=== PATIENT | female | born 1945 | race Two or more races ===

== ENCOUNTER 2020-07-13 17:56 | Emergency (ER) | payer OTHER ==
[~2020-07-13] VITALS: Ht 160 cm; Wt 72.6 kg
--- NOTE | 2020-07-13 18:00 | NUR ---
ED Nurse Note: Patient BIBA from home c/o flu-like symptoms, chills, and diarrhea for the past 2-3 days. Patient VSS, no s/s of acute distress.
[2020-07-13 18:01] VITALS: BP 150/88
--- NOTE | 2020-07-13 18:10 | NUR ---
ED Nurse Note: 20g IV started in right AC, blood collected and sent to lab, along with Covid and influenza swabs
--- NOTE | 2020-07-13 18:13 | Emergency Room Report ---
History of Present Illness General Chief Complaint: Upper Respiratory Illness Source: Patient Present Illness HPI Disclaimer: Please note that this report is being documented using [email or web address] technology. This can lead to erroneous entry secondary to incorrect interpretation by the dictating instrument. HPI: 75-year-old female history of breast cancer status post chemotherapy, radiation and mastectomy on maintenance chemotherapy presents for evaluation of fever and weakness. Patient reports 3 to 5 days of general fatigue and malaise as well as 2 days of nonbloody diarrhea. Denies nausea or vomiting. Denies chest pain, shortness of breath, cough, nasal congestion or URI symptoms otherwise. Tested negative for COVID-19 last month. Reports low-grade fevers at home as high as 100 degrees oral temperature. Denies dysuria or hematuria or flank pain. Received a flu shot last month. PMH: Breast cancer PSH: Mastectomy, splenectomy Allergies: Denied Social Hx: Denied Allergies: Coded Allergies: No Known Allergies (Unverified , 07/13/20) COVID-19 Screening Contact w/high risk pt: No Experienced COVID-19 symptoms?: No COVID-19 Testing performed SCOOP DRIVER: No Nursing Documentation-PMH Hx Cancer: Yes - breast Review of Systems All Other Systems: negative except mentioned in HPI Physical Exam Vital Signs Date Time Temp Pulse Resp B/P (MAP) Pulse Ox O2 Delivery O2 Flow Rate FiO2 07/13/20 17:48 99.0 80 18 150/88 (108) 98 Room Air General: Awake and alert, no acute distress HEENT: NC/AT. EOMI. Cardiovascular: RRR. S1 and S2 normal. No murmur appreciated Resp: Normal work of breathing. No cough, wheezing or crackles appreciated Abdomen: Abdomen is soft, nondistended. Tender palpation in the suprapubic region. No masses. No guarding, no rebound. Skin: Intact. No abrasions, laceration or rash over the exposed skin MSK: Normal tone and bulk. Moving all extremities. No obvious deformity. Neuro: Awake and alert. Mentating appropriately. Medical Decision Making Diagnostic Impression: Primary Impression: Colitis Additional Impressions: Fever Generalized weakness ER Course Is a 75-year-old female presenting for evaluation of fatigue, diarrhea illness and abdominal cramping. Differential includes was not limited to viral syndrome, gastritis, gastroenteritis, pancreatitis, cholecystitis, UTI, pyelonephritis, pneumonia, COVID-19 among others. Patient receiving IV fluids. Labs returned largely within normal limits. Slight elevation of white count 11.2 with a neutrophil predominance. Chemistry shows normal renal function with creatinine 1.2 and BUN of 9. Lipase within normal limits. RBCs present in urine but otherwise no evidence of acute urinary tract infection. No infiltrate seen on chest x-ray. Influenza and COVID-19 rapid swabs returned negative. CT scan was obtained showing diffuse colonic thickening consistent with colitis. This consistent with the patient's history of recent diarrhea. Given her cancer history and chemotherapy, weakness and the effect that she lives alone do not believe she is safe for discharge at this time. Will arrange for admission. Discussed case with [facility], Dr. Stinson. ED authorization #[id number]. Awaiting room assignment and then would arrange for transfer Laboratory Tests Test 07/13/20 18:20 White Blood Count 11.2 K/UL (4.8-10.8) H Red Blood Count 3.98 M/UL (4.20-5.40) L Hemoglobin 13.2 G/DL (12.0-16.0) Hematocrit 40.0 % (37.0-47.0) Mean Corpuscular Volume 100 FL (80-99) H Mean Corpuscular Hemoglobin 33.2 PG (27.0-31.0) H Mean Corpuscular Hemoglobin Concent 33.1 G/DL (32.0-36.0) Red Cell Distribution Width 13.3 % (11.6-14.8) Platelet Count 211 K/UL (150-450) Mean Platelet Volume 7.9 FL (6.5-10.1) Neutrophils (%) (Auto) 79.8 % (45.0-75.0) H Lymphocytes (%) (Auto) 14.4 % (20.0-45.0) L Monocytes (%) (Auto) 4.9 % (1.0-10.0) Eosinophils (%) (Auto) 0.3 % (0.0-3.0) Basophils (%) (Auto) 0.7 % (0.0-2.0) Urine Color Yellow Urine Appearance Clear Urine pH 7 (4.5-8.0) Urine Specific [place] 1.010 (1.005-1.035) Urine Protein 2+ (NEGATIVE) H Urine Glucose (UA) Negative (NEGATIVE) Urine Ketones 2+ (NEGATIVE) H Urine Blood 2+ (NEGATIVE) H Urine Nitrite Negative (NEGATIVE) Urine Bilirubin Negative (NEGATIVE) Urine Urobilinogen Normal MG/DL (0.0-1.0) Urine Leukocyte Esterase Negative (NEGATIVE) Urine RBC 5-10 /HPF (0 - 2) H Urine WBC 0-2 /HPF (0 - 2) Urine Squamous Epithelial Cells Few /LPF (NONE/OCC) Urine Bacteria Few /HPF (NONE) Sodium Level 137 MMOL/L (136-145) Potassium Level 3.6 MMOL/L (3.5-5.1) Chloride Level 101 MMOL/L (98-107) Carbon Dioxide Level 25 MMOL/L (21-32) Anion Gap 11 mmol/L (5-15) Blood Urea Nitrogen 9 mg/dL (7-18) Creatinine 1.2 MG/DL (0.55-1.30) Estimated Glomerular Filtration Rate 44.0 mL/min (>60) Glucose Level 89 MG/DL (74-106) Calcium Level 9.2 MG/DL (8.5-10.1) Total Bilirubin 0.4 MG/DL (0.2-1.0) Aspartate Amino Transferase (AST) 34 U/L (15-37) Alanine Aminotransferase (ALT) 40 U/L (12-78) Alkaline Phosphatase 193 U/L (46-116) H Total Protein 7.4 G/DL (6.4-8.2) Albumin 3.3 G/DL (3.4-5.0) L Globulin 4.1 g/dL Albumin/Globulin Ratio 0.8 (1.0-2.7) L Lipase 51 U/L (73-393) L Microbiology Date/Time Source Procedure Growth Status 07/13/20 18:20 Nasal Nares - Final Complete 07/13/20 18:20 Nasal Nares - Final Complete 07/13/20 18:20 Nasopharynx SARS-CoV-2 RdRp Gene Assay - Final Complete Chest X-Ray Diagnostic Results Chest X-Ray Diagnostic Results : Chest X-Ray Ordered: Yes # of Views/Limited/Complete: 1 View Indication: Other - fever Interpretation: no consolidation, no effusion, no pneumothorax, no acute cardiopulmonary disease Impression: No acute disease Electronically Signed by: Electronically signed by Dr. Dennis Rojo MD CT/MRI/US Diagnostic Results CT/MRI/US Diagnostic Results : Impression Final Report EXAM: CT Abdomen and Pelvis With Intravenous Contrast CLINICAL HISTORY: ABD PAIN TECHNIQUE: Axial computed tomography images of the abdomen and pelvis with intravenous contrast. CTDI is 9.2 mGy and DLP is 422 mGy-cm. One or more of the following dose reduction techniques were used: automated exposure control, adjustment of the mA and/or kV according to patient size, use of iterative reconstruction technique. COMPARISON: No relevant prior studies available. FINDINGS: Lung bases: Unremarkable. ABDOMEN: Liver: Unremarkable. Gallbladder and bile ducts: Unremarkable. No calcified stones. Pancreas: Unremarkable. Spleen: Splenectomy. Adrenals: Unremarkable. Kidneys and ureters: Unremarkable. No hydronephrosis. Stomach and bowel: Diffuse colonic thickening consistent with colitis. No pneumatosis or free air. No bowel obstruction or diverticulitis. PELVIS: Appendix: No findings to suggest acute appendicitis. Bladder: Unremarkable. Reproductive: Unremarkable as visualized. ABDOMEN and PELVIS: Intraperitoneal space: No free air. Bones/joints: No acute fracture. Soft tissues: Ventral abdominal wall postop changes. Vasculature: Unremarkable. Lymph nodes: Unremarkable. IMPRESSION: Diffuse colonic thickening consistent with colitis. No pneumatosis or free air. No bowel obstruction or diverticulitis. Radiologist: Jaime Sepulveda M.D. Electronically Signed: 07/13/20 20:42 Study ready at 20:24 and initial results transmitted at 20:42 Last Vital Signs Date Time Temp Pulse Resp B/P (MAP) Pulse Ox O2 Delivery O2 Flow Rate FiO2 07/13/20 18:01 80 18 Room Air 07/13/20 18:01 99.0 150/88 98 Disposition: SHORT-TERM HOSP Condition: Stable Dennis Rojo MD Jul 13, 2020 18:13
--- NOTE | 2020-07-13 18:20 | NUR ---
ED Nurse Note: Urine specimen sent to lab
[2020-07-13 18:49] LABS: BASOPHILS % (AUTO) 0.7 % (0.0-2.0); EOSINOPHILS % (AUTO) 0.3 % (0.0-3.0); HEMOGLOBIN 13.2 G/DL (12.0-16.0); LYMPHOCYTES % (AUTO) 14.4 % (20.0-45.0); MEAN CORPUSCULAR VOLUME 100 FL (80-99); MONOCYTES % (AUTO) 4.9 % (1.0-10.0); NEUTROPHILS % (AUTO) 79.8 % (45.0-75.0); PLATELET COUNT 211 K/UL (150-450); RED BLOOD COUNT 3.98 M/UL (4.20-5.40); RED CELL DISTRIBUTION WIDTH 13.3 % (11.6-14.8); WHITE BLOOD COUNT 11.2 K/UL (4.8-10.8)
[2020-07-13 18:50] LABS: APPEARANCE,URINE CLEAR; BILIRUBIN, URINE NEGATIVE (NEGATIVE); GLUCOSE, URINE (UA) NEGATIVE (NEGATIVE); KETONES,URINE 2+ (NEGATIVE); LEUKOCYTE ESTERASE ,URINE NEGATIVE (NEGATIVE); NITRITE,URINE NEGATIVE (NEGATIVE); PH,URINE 7 (4.5-8.0); PROTEIN,URINE 2+ (NEGATIVE); UROBILINOGEN,URINE NORMAL MG/DL (0.0-1.0)
[2020-07-13 18:51] LABS: COLOR,URINE YELLOW
[2020-07-13 19:07] LABS: CALCIUM 9.2 MG/DL (8.5-10.1); CREATININE 1.2 MG/DL (0.55-1.30); POTASSIUM 3.6 MMOL/L (3.5-5.1)
[2020-07-13 19:11] LABS: ALBUMIN 3.3 G/DL (3.4-5.0); ALBUMIN/GLOBULIN RATIO 0.8 (1.0-2.7); BILIRUBIN,TOTAL 0.4 MG/DL (0.2-1.0)
[2020-07-13] MEDS ORDERED: Omnipaque-300 100ml vial INJ PRN (20:00)
--- NOTE | 2020-07-13 20:05 | NUR ---
ED Nurse Note: Pt taken to CT via trupti.
--- NOTE | 2020-07-13 20:25 | NUR ---
ED Nurse Note: Pt returned from CT.
--- NOTE | 2020-07-13 20:43 | Diagnostic Imaging Report ---
EXAM: CT Abdomen and Pelvis With Intravenous Contrast CLINICAL HISTORY: ABD PAIN TECHNIQUE: Axial computed tomography images of the abdomen and pelvis with intravenous contrast. CTDI is 9.2 mGy and DLP is 422 mGy-cm. One or more of the following dose reduction techniques were used: automated exposure control, adjustment of the mA and/or kV according to patient size, use of iterative reconstruction technique. COMPARISON: No relevant prior studies available. FINDINGS: Lung bases: Unremarkable. ABDOMEN: Liver: Unremarkable. Gallbladder and bile ducts: Unremarkable. No calcified stones. Pancreas: Unremarkable. Spleen: Splenectomy. Adrenals: Unremarkable. Kidneys and ureters: Unremarkable. No hydronephrosis. Stomach and bowel: Diffuse colonic thickening consistent with colitis. No pneumatosis or free air. No bowel obstruction or diverticulitis. PELVIS: Appendix: No findings to suggest acute appendicitis. Bladder: Unremarkable. Reproductive: Unremarkable as visualized. ABDOMEN and PELVIS: Intraperitoneal space: No free air. Bones/joints: No acute fracture. Soft tissues: Ventral abdominal wall postop changes. Vasculature: Unremarkable. Lymph nodes: Unremarkable. IMPRESSION: Diffuse colonic thickening consistent with colitis. No pneumatosis or free air. No bowel obstruction or diverticulitis.
[2020-07-13 21:35] VITALS: BP 124/69
[2020-07-13] MEDS ORDERED: metroNIDAZOLE 500mg tab ORAL ONE (22:45)
[2020-07-13] MEDS ORDERED: Ciprofloxacin 500mg tab ORAL ONE (22:45)
[2020-07-13 23:00] VITALS: BP 132/74
--- NOTE | 2020-07-13 23:00 | NUR ---
ED Nurse Note: received report from Chelsea PATINO. Pt in bedpan, vss, nad, aaox4, ambulatory, on cardiac rn.
--- NOTE | 2020-07-13 23:15 | NUR ---
Patients daughter Darling called ,left her number [phone] to be informed of patients location([place],Room# ect).
[2020-07-14] MEDS ORDERED: Metoclopramide 10mg/2ml Inj IVP ONE (00:45)
[2020-07-14] MEDS ORDERED: DiphenhydrAMINE 50mg/ml Inj IVP ONE (00:45)
--- NOTE | 2020-07-14 00:53 | NUR ---
Patients daughter notifed of patients destination-room number and phone number to nurses station given. Advised to call in the morning to update her mothers condition.Daughter was greatful.
--- NOTE | 2020-07-14 01:08 | NUR ---
ED Nurse Note: gave report to Charlene PATINO at [facility] and [facility] with [id number]
[2020-07-14 01:09] VITALS: BP 130/71
[2020-07-14 01:15] VITALS: BP 130/71
--- NOTE | 2020-07-14 01:15 | NUR ---
TRANSFER TO [facility] Patient transferred to [facility] via [facility] ambulance as ordered, per Dr. Camarillo. Report given to Charlene PATINO at [facility]. Belongings sent with patient
--- NOTE | 2020-07-14 14:06 | Diagnostic Imaging Report ---
Indication: Shortness of breath Technique: One view of the chest Comparison: none Findings: Lungs and pleural spaces are clear. The heart is borderline enlarged. Impression: Borderline cardiomegaly No acute process
== END 2020-07-14 01:15 | disposition short-term general hospital (02) ==
LOC: EDBD 17:56 → EMR 18:05
DX: K52.9 Noninfective gastroenteritis and colitis, unspecified (principal); R50.9 Fever, unspecified; R53.1 Weakness; Z85.3 Personal history of malignant neoplasm of breast; Z90.10 Acquired absence of unspecified breast and nipple; Z90.81 Acquired absence of spleen
CPT/HCPCS: 36415; 71045; 74177; 80053; 81003; 83690; 85025; 86710; 96361; 96374; 96375; 99284; J1200; J2405; J2765; J7030; Q9965; U0002